=== PATIENT | female | born 1975 | race African-American/Black ===

== ENCOUNTER 2017-10-17 03:06 | Emergency (ER) | payer OTHER ==
[~2017-10-17] VITALS: Ht 157.5 cm; Wt 90.0 kg
[~2017-10-17 03:06] MED LIST: ATENOLOL25 MG PO; BENADRYL ALLERG25 MG PO; BENTYL10 MG PO; CIPRO500 MG PO; ENDOCET 5-3251 EACH; LISINOPRIL10 MG; LORTAB 5-325 M1 EACH PO; MEDROL DOSEPAK4 MG PO; MICROGESTIN FE1 EACH; MOTRIN600 MG PO; NAPROXEN500 MG PO; PREDNISONE10 MG PO; PRILOSEC20 MG PO; RANITIDINE HCL150 M1 PO
[2017-10-17 06:18] VITALS: BP 108/76
== END 2017-10-17 06:18 | disposition home or self-care (01) ==
LOC: EME → EDBD 03:06 → EME 06:18
DX: S62.636A Displaced fracture of distal phalanx of right little finger, initial encounter for closed fracture (principal); S60.416A Abrasion of right little finger, initial encounter; S50.812A Abrasion of left forearm, initial encounter; S80.211A Abrasion, right knee, initial encounter; Y04.2XXA Assault by strike against or bumped into by another person, initial encounter
CPT/HCPCS: 73080; 73130; 73564; 99281; 99284

== ENCOUNTER → 2017-11-07 | Outpatient (CLI) | payer OTHER | END | disposition home or self-care (01) | LOC: CDC 12:48 | DX: Z01.810 Encounter for preprocedural cardiovascular examination (principal); M20.011 Mallet finger of right finger(s); R00.0 Tachycardia, unspecified; R94.31 Abnormal electrocardiogram [ECG] [EKG] | CPT/HCPCS: 93000 ==